=== PATIENT | female | born 1940 | race Native Hawaiian/Other Pacific Islander ===

== ENCOUNTER 2017-01-22 14:05 | Outpatient (CLI) | payer OTHER, MEDICARE ==
[~2017-01-22 14:05] MED LIST: ALLO300T23 PO; ATEN25TA21 PO; FERROUS SULF325 MG PO; LIPITOR40 MG PO; OMEPRAZOLE40 MG PO; SITA50TA2 PO; VITAMIN B-121000 MCG PO; ZESTRIL40 MG PO
[2017-01-22] MEDS ORDERED: SPIRONOLACT25 MG PO (18:08)
[2017-01-22] MEDS ORDERED: CLOP75TA2 PO (18:08)
== END 2017-01-22 14:20 | disposition short-term general hospital (02) ==
LOC: AMB 14:05
DX: E86.0 Dehydration (principal); R11.2 Nausea with vomiting, unspecified; R53.81 Other malaise
CPT/HCPCS: A0425; A0427

== ENCOUNTER 2017-01-22 14:22 | Inpatient (IN) | payer OTHER, MEDICARE ==
[~2017-01-22] VITALS: Ht 167.6 cm; Wt 77.6 kg
[2017-01-22 14:20] VITALS: BP 154/77; TEMP 98.1
[2017-01-22 15:04] LABS: PLATELET COUNT 250 K/uL (152-353)
[2017-01-22 15:16] LABS: POTASSIUM 4.2 mmol/L (3.6-5.2); SODIUM 131 mmol/L (136-145)
[2017-01-22 17:29] VITALS: BP 143/43; TEMP 98.5; Ht 167.6 cm; Wt 77.6 kg
[2017-01-22] MEDS ORDERED: SPIRONOLACT25 MG PO (18:08)
[2017-01-22] MEDS ORDERED: CLOP75TA2 PO (18:08)
[2017-01-22 20:00] VITALS: BP 160/42; TEMP 98
[2017-01-23] VITALS: BP 164/54; TEMP 98
[2017-01-23 04:00] VITALS: BP 166/64; TEMP 98.3
[2017-01-23 06:50] LABS: PLATELET COUNT 224 K/uL (152-353)
[2017-01-23 07:01] LABS: POTASSIUM 4.1 mmol/L (3.6-5.2)
[2017-01-23 08:00] VITALS: BP 158/60; TEMP 98.4
[2017-01-23 12:00] VITALS: BP 147/49; TEMP 98.2
[2017-01-23 16:00] VITALS: BP 151/56; TEMP 98
[2017-01-23 20:00] VITALS: BP 157/45; TEMP 98.3
[2017-01-24] VITALS: BP 121/49; TEMP 98.1
[2017-01-24 04:00] VITALS: BP 144/58; TEMP 98.1
[2017-01-24 04:51] LABS: PLATELET COUNT 232 K/uL (152-353)
[2017-01-24 05:02] LABS: SODIUM 130 mmol/L (136-145)
[2017-01-24 08:00] VITALS: BP 157/63; TEMP 98.2
[2017-01-24 12:00] VITALS: BP 150/63; TEMP 98.2
== END 2017-01-24 15:20 | disposition home or self-care (01) | DRG 690 ==
LOC: ED 14:22 → MED/SURG 16:25
PROVIDERS: Emergency Medicine; ADMIT Family Medicine
DX: N39.0 Urinary tract infection, site not specified (principal); E87.1 Hypo-osmolality and hyponatremia; R11.2 Nausea with vomiting, unspecified; A08.8 Other specified intestinal infections; R51 Headache; E86.0 Dehydration; D72.828 Other elevated white blood cell count; K21.9 Gastro-esophageal reflux disease without esophagitis; R42 Dizziness and giddiness; E11.9 Type 2 diabetes mellitus without complications; Z79.4 Long term (current) use of insulin; E03.8 Other specified hypothyroidism; J44.9 Chronic obstructive pulmonary disease, unspecified
CPT/HCPCS: 36415; 80048; 80053; 81000; 82150; 82550; 82948; 83690; 83735; 83880; 84484; 85027; 87040; 87088; 93005; 96360; 96361; 96365; 96366; 96367; 99284; J0696; J1885; J3475

== ENCOUNTER 2017-01-27 10:32 | Outpatient (CLI) | payer OTHER, MEDICARE ==
[~2017-01-27 10:32] MED LIST changes: +CLOP75TA2 PO; +SPIRONOLACT25 MG PO
[2017-01-27 12:51] LABS: PLATELET COUNT 258 K/uL (152-353)
[2017-01-27 15:50] LABS: POTASSIUM 3.9 mmol/L (3.6-5.2); SODIUM 133 mmol/L (136-145)
== END 2017-01-27 11:32 | disposition home or self-care (01) ==
LOC: LABW 10:32
PROVIDERS: Internal Medicine
DX: R53.1 Weakness (principal); E83.42 Hypomagnesemia; R05 Cough
CPT/HCPCS: 36415; 80053; 81000; 83735; 85027

== ENCOUNTER 2018-10-02 14:38 | Outpatient (CLI) | payer OTHER, MEDICARE | END 2018-10-02 15:20 | disposition short-term general hospital (02) | LOC: AMB 14:38 | DX: R19.7 Diarrhea, unspecified (principal); R11.2 Nausea with vomiting, unspecified; R73.9 Hyperglycemia, unspecified | CPT/HCPCS: A0425; A0427 ==

== ENCOUNTER 2018-10-09 14:31 | Inpatient (IN) | payer OTHER, MEDICARE ==
[~2018-10-09] VITALS: Ht 167.6 cm; Wt 76.3 kg
[2018-10-09 15:32] VITALS: BP 130/47; TEMP 98.1; Ht 167.6 cm; Wt 76.3 kg
[2018-10-10 12:44] LABS: PLATELET COUNT 383 K/uL (152-353)
[2018-10-10 13:40] LABS: POTASSIUM 4.4 mmol/L (3.6-5.2)
[2018-10-10 20:14] VITALS: BP 139/62; TEMP 97.9
[2018-10-11 20:00] VITALS: BP 118/51; TEMP 98.8
[2018-10-12 08:05] VITALS: BP 131/65; TEMP 98.4
[2018-10-12 20:00] VITALS: BP 130/50; TEMP 98.2
[2018-10-13 20:46] VITALS: BP 146/63; TEMP 98.2
[2018-10-14 10:03] VITALS: BP 133/48; TEMP 98
[2018-10-14 20:00] VITALS: BP 116/52; TEMP 98.3
[2018-10-15 21:21] VITALS: BP 123/50; TEMP 98.9
[2018-10-16 05:55] LABS: PLATELET COUNT 340 K/uL (152-353)
[2018-10-16 06:09] LABS: POTASSIUM 3.7 mmol/L (3.6-5.2)
[2018-10-16 20:14] VITALS: BP 177/57; TEMP 98
[2018-10-17 08:11] VITALS: BP 155/59; TEMP 98.1
[2018-10-17 20:00] VITALS: BP 147/60; TEMP 98.3
[2018-10-18 09:09] VITALS: BP 168/49; TEMP 98
[2018-10-18 20:00] VITALS: BP 137/54; TEMP 98.1
[2018-10-19 08:03] VITALS: BP 157/71; TEMP 97.9
[2018-10-19 20:19] VITALS: BP 115/50; TEMP 98.2
[2018-10-20 08:05] VITALS: BP 131/53; TEMP 97.5
[2018-10-21 08:15] VITALS: BP 136/57; TEMP 98.1
[2018-10-21 21:12] VITALS: BP 124/61; TEMP 98.1
[2018-10-22 05:27] LABS: PLATELET COUNT 209 K/uL (152-353)
[2018-10-22 06:02] LABS: SODIUM 141 mmol/L (136-145)
== END 2018-10-22 15:00 | disposition home health service (06) | DRG 556 ==
LOC: MED/SURG 14:31
PROVIDERS: ADMIT Internal Medicine
DX: M62.81 Muscle weakness (generalized) (principal); R53.81 Other malaise; E11.9 Type 2 diabetes mellitus without complications; I10 Essential (primary) hypertension; F03.90 Unspecified dementia, unspecified severity, without behavioral disturbance, psychotic disturbance, mood disturbance, and anxiety
CPT/HCPCS: 36415; 80053; 81000; 83735; 84484; 85027

== ENCOUNTER 2019-12-05 22:13 | Outpatient (CLI) | payer OTHER, MEDICARE ==
[2019-12-06] MEDS ORDERED: JANUVIA100 MG PO (02:41)
[2019-12-06] MEDS ORDERED: DONEPEZIL HYDRO10 M1 PO (02:42)
[2019-12-06] MEDS ORDERED: MEMANTINE HCL10 MG PO (02:43)
[2019-12-06] MEDS ORDERED: VENL37.511 PO (02:43)
[2019-12-06] MEDS ORDERED: QUETIAPINE50 MG PO (02:44)
[2019-12-06] MEDS ORDERED: VITAMIN D31000 UNIT PO (02:44)
== END 2019-12-05 22:27 | disposition short-term general hospital (02) ==
LOC: AMB 22:13
DX: R46.4 Slowness and poor responsiveness (principal); I63.9 Cerebral infarction, unspecified; R53.1 Weakness; R00.0 Tachycardia, unspecified; R56.9 Unspecified convulsions
CPT/HCPCS: A0425; A0427

== ENCOUNTER 2019-12-05 22:26 | Emergency (ER) | payer OTHER, MEDICARE ==
[~2019-12-05] VITALS: Ht 167.6 cm; Wt 76.2 kg
[2019-12-05 22:37] VITALS: TEMP 97.7
[2019-12-05 22:53] LABS: PLATELET COUNT 268 K/uL (152-353)
[2019-12-05 22:56] LABS: POTASSIUM 4.2 mmol/L (3.6-5.2)
[2019-12-05 23:10] LABS: PARTIAL THROMBOPLASTIN TIME 24.8 SECONDS (24.5-33.6)
[2019-12-06 01:55] VITALS: BP 92/31
[2019-12-06] MEDS ORDERED: JANUVIA100 MG PO (02:41)
[2019-12-06] MEDS ORDERED: DONEPEZIL HYDRO10 M1 PO (02:42)
[2019-12-06] MEDS ORDERED: MEMANTINE HCL10 MG PO (02:43)
[2019-12-06] MEDS ORDERED: VENL37.511 PO (02:43)
[2019-12-06] MEDS ORDERED: VITAMIN D31000 UNIT PO (02:44)
[2019-12-06] MEDS ORDERED: QUETIAPINE50 MG PO (02:44)
== END 2019-12-06 02:00 | disposition short-term general hospital (02) ==
LOC: ED 22:26
PROVIDERS: Emergency Medicine
PROC: 0T9B70Z Drainage of Bladder with Drainage Device, Via Natural or Artificial Opening (ICD-10-PCS; principal; 2019-12-05)
PROC: 0BH17EZ Insertion of Endotracheal Airway into Trachea, Via Natural or Artificial Opening (ICD-10-PCS; 2019-12-05)
PROC: 5A1935Z Respiratory Ventilation, Less than 24 Consecutive Hours (ICD-10-PCS; 2019-12-05)
DX: I63.9 Cerebral infarction, unspecified (principal); G40.901 Epilepsy, unspecified, not intractable, with status epilepticus
CPT/HCPCS: 31500; 36600; 51702; 80053; 81000; 82550; 82805; 82962; 83735; 84484; 85027; 85610; 85730; 87088; 93005; 96360; 96365; 96366; 96375; 99285; J1265; J2060; J2250; Q2009